=== PATIENT | male | born 1980 | race Caucasian/White ===

== ENCOUNTER 2019-05-26 11:18 | Emergency (ER) | payer BC, SELFPAY ==
[2019-05-26 11:45] VITALS: BP 131/82; PULSE 75; RESP 16; TEMP 37; O2SAT 98
[2019-05-26 12:54] LABS: Add Manual Diff / Slide Review NO; Basophils Absolute Auto 0 /uL (0-100); Basophils Percent Auto 0.7 % (0-2); Eosinophils Absolute Auto 200 /uL (0-450); Eosinophils Percent Auto 3.6 % (2-4); Hematocrit 43.3 % (41-53); Hemoglobin 14.5 g/dL (13.5-17.5); Lymphocytes Absolute Auto 1400 /uL (1100-4500); Lymphocytes Percent Auto 31.4 % (25-40); Mean Corpuscular HGB Conc 33.5 % (30-36); Mean Corpuscular Hemoglobin 31.7 PG (26-34); Mean Corpuscular Volume 94.6 fL (80-100); Monocytes Absolute Auto 300 /uL (0-900); Monocytes Percent Auto 7.9 % (3-14); Neutrophils Absolute Auto 2400 /uL (1500-7000); Neutrophils Percent Auto 56.4 % (50-75); Platelet Count 257 X10^3/uL (150-400); Red Blood Cell Count 4.58 X10^6/uL (4.5-5.9); White Blood Cell Count 4.3 X10^3/uL (4.5-11.0)
[2019-05-26 13:06] LABS: Alanine Aminotransferase 30 IU/L (<50); Albumin 4.2 g/dL (3.5-5.0); Albumin Globulin Ratio 1.4 (1.0-2.8); Alkaline Phosphatase 48 U/L (38-126); Aspartate Aminotransferase 24 IU/L (17-59); Bilirubin Total 0.4 mg/dL (0.2-1.3); Blood Urea Nitrogen 17 mg/dL (9-20); Calcium 9.3 mg/dL (8.4-10.2); Carbon Dioxide 24 mmol/L (22-32); Chloride 111 mmol/L (98-107); Estimated Glomerular Filt Rate > 60.0 mL/min (>60); Globulin 2.9 g/dL (1.7-4.1); Glucose 84 mg/dL (70-100); HEMOLYSIS < 15 (0-50); Lipase 68 U/L (23-300); Potassium 4.2 mmol/L (3.4-5.1); Sodium 142 mmol/L (137-145); Total Protein 7.1 g/dL (6.3-8.2)
--- NOTE | 2019-05-26 13:17 | ED_ITS ---
HPI - Abdominal Pain <ISABEL Barragan - Last Filed: 05/26/19 21:05> General Chief Complaint: Abdominal Pain Stated Complaint: 6 MM KIDNEY STONE IN PROCESS FLANK PAIN Time Seen by Provider: 05/26/19 12:13 Source: patient Mode of arrival: Ambulatory History of Present Illness HPI narrative: 39-year-old male presents to the emergency department complaining of worsening right flank pain. He was seen on 05/21/2019 at [facility] and diagnosed with a 6 mm right ureteral stone. Patient was encouraged to take Tylenol and ibuprofen and Zofran as needed for symptoms. He was also started on tamsulosin at this time. He states the pain had been decreasing however, today he noticed a significant increase in pain over the past 24 hours. Patient denies nausea, vomiting, abdominal pain, chest pain, shortness of breath, fevers, chills, other concerns. Related Data Home Medications Medication Instructions Recorded Confirmed quetiapine 300 mg tablet 300 mg PO BID 06/26/18 06/26/18 sertraline 100 mg tablet 100 mg PO DAILY 06/26/18 06/26/18 topiramate 25 mg tablet 25 mg PO DAILY 06/26/18 06/26/18 Previous Rx's Medication Instructions Recorded nicotine 21 mg/24 hr daily 1 patch TRANSDERMAL DAILY #28 each 06/28/18 transdermal patch hydrocodone-acetaminophen [[place]] 1 tab PO Q4-6H PRN #14 tab 05/26/19 ketorolac 10 mg PO TID PRN 5 Days #14 tab 05/26/19 Allergies Allergy/AdvReac Type Severity Reaction Status Date / Time No Known Drug Allergies Allergy Unverified 06/26/18 15:06 Review of Systems <ISABEL Barragan - Last Filed: 05/26/19 21:05> Review of Systems Narrative: REVIEW OF SYSTEMS: GENERAL: Denies fever, chills, malaise, or wt. loss. HENT: No head trauma, sore throat, or dysphagia. EYES: No loss of vision, double vision, eye pain, or irritation. CARDIOVASCULAR: No chest pain, palpitations, or orthopnea. RESPIRATORY: No shortness of breath or cough. GASTROINTESTINAL: Patient denies abdominal pain, nausea, vomiting, or diarrhea. GENITOURINARY: Reports right-sided flank pain, see HPI., urinary incontinence, hesitancy, frequency, or dysuria. MUSCULOSKELETAL: No pain, weakness, or trauma. INTEGUMENTARY: No rash, lesions, or pruritus. NEURO: No numbness, tingling, memory loss, confusion, or headaches. PSYCH: No behavior or mood changes. Patient History <ISABEL Barragan - Last Filed: 05/26/19 21:05> Medical History (Updated 05/26/19 @ 15:16 by ISABEL Barragan) Bipolar disorder (Chronic) Depression (Chronic) History of methamphetamine abuse (Chronic) Seizure disorder (Chronic) Social History Smoking Status: Current every day smoker quit status: considering quitting Smoking Status: Current every day smoker Exam <ISABEL Barragan - Last Filed: 05/26/19 21:05> Initial Vital Signs Initial Vital Signs: Vital Signs Temperature 98.6 F 05/26/19 11:45 Pulse Rate 75 05/26/19 11:45 Respiratory Rate 16 05/26/19 11:45 Blood Pressure 131/82 05/26/19 11:45 Pulse Oximetry 98 05/26/19 11:45 PHYSICAL EXAMINATION: GENERAL: Well groomed, alert, and cooperative. Answers questions promptly and appropriately. Vital signs noted. HENT: Normocephalic, atraumatic. Hearing intact. Oral mucosa is pink and moist. EYES: Conjunctiva pink, sclera white, no periorbital swelling. CARDIOVASCULAR: S1 and S2 sounds normal. Regular rate and rhythm, no murmurs, clicks, or bruits. No pedal edema. RESPIRATORY: Normal respiratory rate, trachea midline, airway patent. No stridor, nasal flaring or accessory muscle use. Lungs are clear in all garcia without wheeze, rhonchi, or crackles. GASTROINTESTINAL: Bowel sounds normoactive. Abdomen is soft and non-tender. No organomegaly, no palpable masses. GENITALURINARY: Right-sided flank tenderness. MUSCULOSKELETAL: Normal gait and coordination. Equal tone and mass bilaterally. EXTREMITIES: CMS intact, no pedal edema. SKIN: Warm, dry, soft, appropriate color for ethnicity. No lesions, rashes, or wounds. NEURO: Alert and Oriented X 3. Good coordination. No ataxia, or sensory deficits, or cognitive issues. PSYCH: Appropriate affect and mood. <Mecca Nelson DO - Last Filed: 05/29/19 07:59> Initial Vital Signs Initial Vital Signs: Vital Signs Temperature 98.6 F 05/26/19 11:45 Pulse Rate 75 05/26/19 11:45 Respiratory Rate 16 05/26/19 11:45 Blood Pressure 131/82 05/26/19 11:45 Pulse Oximetry 98 05/26/19 11:45 Course <ISABEL Barragan - Last Filed: 05/26/19 21:05> Course Course Narrative: Patient was given IV Toradol and fluids which improved pain for approximately 1-1.5 hours. After discussion with patient about ultrasound results, he was encouraged to follow up with urology as planned. Patient was discharged with nausea and pain medication. Orders Ordered: Discontinued Medications Hydromorphone HCl (Dilaudid) 0.5 mg IV NOW ONE Stop: 05/26/19 13:06 Last Admin: 05/26/19 13:41 Dose: Not Given Documented by: KRISTINE Sodium Chloride (Normal Saline 0.9%) 1,000 mls @ 1,000 mls/hr IV BOLUS ONE Stop: 05/26/19 13:32 Last Infusion: 05/26/19 14:49 Dose: 0 mls/hr Documented by: Admin: 05/26/19 13:40 Dose: 1,000 mls/hr Documented by: KRISTINE Ketorolac Tromethamine (Toradol) 30 mg IV NOW ONE Stop: 05/26/19 13:17 Last Admin: 05/26/19 13:41 Dose: 30 mg Documented by: KRISTINE Topiramate (Topamax) 25 mg PO NOW ONE Stop: 05/26/19 14:54 Last Admin: 05/26/19 15:01 Dose: 25 mg Documented by: KRISTINE Consultations Consultation #1: Patient staffed with Dr. Nelson. Vital Signs Vital signs: Vital Signs - 8 hr 05/26/19 15:20 Pulse Rate 81 Respiratory Rate 16 Blood Pressure [Left Arm] 134/82 Pulse Oximetry 100 <Mecca Nelson DO - Last Filed: 05/29/19 07:59> Orders Ordered: Discontinued Medications Hydromorphone HCl (Dilaudid) 0.5 mg IV NOW ONE Stop: 05/26/19 13:06 Last Admin: 05/26/19 13:41 Dose: Not Given Documented by: KRISTINE Sodium Chloride (Normal Saline 0.9%) 1,000 mls @ 1,000 mls/hr IV BOLUS ONE Stop: 05/26/19 13:32 Last Infusion: 05/26/19 14:49 Dose: 0 mls/hr Documented by: Admin: 05/26/19 13:40 Dose: 1,000 mls/hr Documented by: KRISTINE Ketorolac Tromethamine (Toradol) 30 mg IV NOW ONE Stop: 05/26/19 13:17 Last Admin: 05/26/19 13:41 Dose: 30 mg Documented by: KRISTINE Topiramate (Topamax) 25 mg PO NOW ONE Stop: 05/26/19 14:54 Last Admin: 05/26/19 15:01 Dose: 25 mg Documented by: KRISTINE Vital Signs Vital signs: Vital Signs - 8 hr 05/26/19 15:20 Pulse Rate 81 Respiratory Rate 16 Blood Pressure [Left Arm] 134/82 Pulse Oximetry 100 MDM - Abdominal Pain <ISABEL Barragan - Last Filed: 05/26/19 21:05> Medical Records Attestation: I reviewed the patient's medical records. Lab Data Attestation: I reviewed the patient's lab results. Result diagrams: 05/26/19 12:45 05/26/19 12:45 Labs: Lab Results 05/26/19 05/26/19 Range/Units 12:45 12:45 WBC 4.3 L (4.5-11.0) X10^3/uL RBC 4.58 (4.5-5.9) X10^6/uL Hgb 14.5 (13.5-17.5) g/dL Hct 43.3 (41-53) % MCV 94.6 (80-100) fL MCH 31.7 (26-34) PG MCHC 33.5 (30-36) % RDW 14.0 (11.6-14.8) % Plt Count 257 (150-400) X10^3/uL Neut % (Auto) 56.4 (50-75) % Lymph % (Auto) 31.4 (25-40) % [place] % (Auto) 7.9 (3-14) % Eos % (Auto) 3.6 (2-4) % Baso % (Auto) 0.7 (0-2) % Neut # (Auto) 2400 (9840-4100) /uL Lymph # (Auto) 1400 (5881-6349) /uL [place] # (Auto) 300 (0-900) /uL Eos # (Auto) 200 (0-450) /uL Baso # (Auto) 0 (0-100) /uL Sodium 142 (137-145) mmol/L Potassium 4.2 (3.4-5.1) mmol/L Chloride 111 H (98-107) mmol/L Carbon Dioxide 24 (22-32) mmol/L BUN 17 (9-20) mg/dL Creatinine 1.00 (0.66-1.25) mg/dL Estimated GFR > 60.0 (>60) mL/min BUN/Creatinine Ratio 17.0 (6-22) Glucose 84 (70-100) mg/dL Calcium 9.3 (8.4-10.2) mg/dL Total Bilirubin 0.4 (0.2-1.3) mg/dL AST 24 (17-59) IU/L ALT 30 (<50) IU/L Alkaline Phosphatase 48 (38-126) U/L Total Protein 7.1 (6.3-8.2) g/dL Albumin 4.2 (3.5-5.0) g/dL Globulin 2.9 (1.7-4.1) g/dL Albumin/Globulin Ratio 1.4 (1.0-2.8) Lipase 68 (23-300) U/L Point of care testing: Urine Dip Bedside Urine Glucose Negative Bedside Urine Bilirubin - Negative Bedside Urine Ketone - Negative Urine Specific [place] 1.015 Bedside Urine Occult Blood + Bedside Urine pH 6.0 Bedside Urine Protein +/- 15 Bedside Urine Urobilinogen - Negative Bedside Urine Nitrite - Negative Bedside Urine Leukocytes - Negative Esterase Imaging Data Renal ultrasound: Radiologist's Impression: [address] [place] [id number] Ultrasound Report Signed Patient: Giancarlo Mattson TMR#: [id number] : 1980Acct:[id number] Age/Sex: 39 / MDate of Service: 05/26/19 Loc: ED Accession Number: [id number] Procedure: US renal complete Ordering Provider: Cee Murillo PROCEDURE: US RENAL COMPLETE INDICATIONS: RIGHT RENAL STONE, RULE OUT HYDRONEPHROSIS TECHNIQUE: Real-time scanning was performed of the kidneys and bladder, with image documentation. COMPARISON: None. FINDINGS: Kidneys: Kidneys are normal in size. Right kidney measures 13 cm long; left kidney measures 10.6 cm long. Right renal cortical thickness is 1.4 cm; left renal cortical thickness is 1.1 cm. Renal cortical echotexture is normal. There is a tiny nonobstructing kidney stone. No left-sided stones are seen. The proximal right ureteral stone that was seen on the prior outside CT examination is not seen on the current study. No nephrolithiasis. No suspicious solid mass lesions. Bladder: The patient voided just prior to this study. Post-void residual is 35 mL. Miscellaneous: No free pelvic fluid. IMPRESSION: No right-sided hydronephrosis is seen. Nonvisualization of the previously seen proximal right ureteral stone. Tiny nonobstructing stone seen on the right. Dictated by: Karl Ward M.D. on 05/26/2019 at 13:28 MDM Narrative Medical decision making narrative: This is a 39-year-old male presenting to the emergency department after being seen at [facility] for a 6 mm nonobstructing stone. He reported worsening pain, labs showed normal renal function and an ultrasound revealed a tiny nonobstructing stone that seen on the right ureter. There is no sign of his previous proximal right ureter stone. Prior CT scan showed a small stone in the renal pelvis, it may be possible that he is passing the stone that was initially in his ureter or he is passing a 2nd stone that was in his renal pelvis. Less likely pyelonephritis due to lack of systemic symptoms such as fever and POC urine test was without urine or white blood cells. Less likely abdominal etiology due to lack of abdominal pain as well as normal labs. Less likely testicular etiology due to lack of testicular pain or swelling or redness. Patient was encouraged to follow up with his urologist in the next week as scheduled. He was encouraged to continue taking his tamsulosin, he was given pain medication and nausea medication. Patient given strict return precautions for new or worsening symptoms. <Mecca Nelson, - Last Filed: 05/29/19 07:59> Lab Data Labs: Lab Results 05/26/19 05/26/19 Range/Units 12:45 12:45 WBC 4.3 L (4.5-11.0) X10^3/uL RBC 4.58 (4.5-5.9) X10^6/uL Hgb 14.5 (13.5-17.5) g/dL Hct 43.3 (41-53) % MCV 94.6 (80-100) fL MCH 31.7 (26-34) PG MCHC 33.5 (30-36) % RDW 14.0 (11.6-14.8) % Plt Count 257 (150-400) X10^3/uL Neut % (Auto) 56.4 (50-75) % Lymph % (Auto) 31.4 (25-40) % [place] % (Auto) 7.9 (3-14) % Eos % (Auto) 3.6 (2-4) % Baso % (Auto) 0.7 (0-2) % Neut # (Auto) 2400 (1463-3306) /uL Lymph # (Auto) 1400 (0904-9628) /uL [place] # (Auto) 300 (0-900) /uL Eos # (Auto) 200 (0-450) /uL Baso # (Auto) 0 (0-100) /uL Sodium 142 (137-145) mmol/L Potassium 4.2 (3.4-5.1) mmol/L Chloride 111 H (98-107) mmol/L Carbon Dioxide 24 (22-32) mmol/L BUN 17 (9-20) mg/dL Creatinine 1.00 (0.66-1.25) mg/dL Estimated GFR > 60.0 (>60) mL/min BUN/Creatinine Ratio 17.0 (6-22) Glucose 84 (70-100) mg/dL Calcium 9.3 (8.4-10.2) mg/dL Total Bilirubin 0.4 (0.2-1.3) mg/dL AST 24 (17-59) IU/L ALT 30 (<50) IU/L Alkaline Phosphatase 48 (38-126) U/L Total Protein 7.1 (6.3-8.2) g/dL Albumin 4.2 (3.5-5.0) g/dL Globulin 2.9 (1.7-4.1) g/dL Albumin/Globulin Ratio 1.4 (1.0-2.8) Lipase 68 (23-300) U/L Point of care testing: Urine Dip Bedside Urine Glucose Negative Bedside Urine Bilirubin - Negative Bedside Urine Ketone - Negative Urine Specific [place] 1.015 Bedside Urine Occult Blood + Bedside Urine pH 6.0 Bedside Urine Protein +/- 15 Bedside Urine Urobilinogen - Negative Bedside Urine Nitrite - Negative Bedside Urine Leukocytes - Negative Esterase Discharge Plan Departure Patient Disposition: Home Clinical Impression: Calculus, renal Discharge Date/Time: 05/26/19 15:22 Instructions: DI for Kidney Stones Activity Restrictions/Additional Instructions: Thank you for entrusting me with your care today. As discussed, you have a small stone in your right ureteral. I prescribed you some pain medication. Do not take Tylenol or ibuprofen with these medications. Continue to take your tamsulosin as prescribed. Follow up with the urologist as scheduled in May. Continue to drink lots of fluid in decrease your intake of caffeine and coffee. Return emergency department for new or worsening symptoms such as high fevers, uncontrollable vomiting, worsening pain, or other concerns. Prescriptions: New ketorolac 10 mg tablet 10 mg PO TID PRN (Reason: pain) 5 Days Qty: 14 RF: 0 hydrocodone-acetaminophen [[place]] 5-325 mg tablet 1 tab PO Q4-6H PRN (Reason: pain) Qty: 14 RF: 0 No Action nicotine 21 mg/24 hr patch 24 hour 1 patch Transdermal DAILY Qty: 28 RF: 2 quetiapine [Seroquel] 300 mg tablet 300 mg PO BID RF: 0 sertraline 100 mg tablet 100 mg PO DAILY RF: 0 topiramate 25 mg tablet 25 mg PO DAILY RF: 0 Referrals: Kimberlee Figueroa MD [Primary Care Provider] -
--- NOTE | 2019-05-26 13:39 | DI.US.S_ITS ---
PROCEDURE: US RENAL COMPLETE INDICATIONS: RIGHT RENAL STONE, RULE OUT HYDRONEPHROSIS TECHNIQUE: Real-time scanning was performed of the kidneys and bladder, with image documentation. COMPARISON: None. FINDINGS: Kidneys: Kidneys are normal in size. Right kidney measures 13 cm long; left kidney measures 10.6 cm long. Right renal cortical thickness is 1.4 cm; left renal cortical thickness is 1.1 cm. Renal cortical echotexture is normal. There is a tiny nonobstructing kidney stone. No left-sided stones are seen. The proximal right ureteral stone that was seen on the prior outside CT examination is not seen on the current study. No nephrolithiasis. No suspicious solid mass lesions. Bladder: The patient voided just prior to this study. Post-void residual is 35 mL. Miscellaneous: No free pelvic fluid. IMPRESSION: No right-sided hydronephrosis is seen. Nonvisualization of the previously seen proximal right ureteral stone. Tiny nonobstructing stone seen on the right. Dictated by: Karl Ward M.D. on 05/26/2019 at 13:28 Approved by: Karl Ward M.D. on 05/26/2019 at 13:31
[2019-05-26] MEDS: SODIUM CHLORIDE 0.9% 1,000 ML 1000 ML IV (13:40)
[2019-05-26] MEDS: KETOROLAC 60 MG/2 ML VIAL 30 MG IV (13:41)
[2019-05-26] MEDS: TOPIRAMATE 25 MG TABLET PO (15:01)
[2019-05-26 15:20] VITALS: BP 134/82; PULSE 81; RESP 16; O2SAT 100
== END 2019-05-26 15:22 | disposition home or self-care (01) ==
PROVIDERS: Emergency Provider Nurse Practitioner; PCP Family Medicine
DX: N20.0 Calculus of kidney (principal)
CPT/HCPCS: 36415; 76770; 80053; 81003; 83690; 85025; 96361; 96374; 99284; J1885